=== PATIENT | female | born 1955 | race Caucasian/White ===

== ENCOUNTER 2019-06-07 18:51 | Inpatient (IN) | payer OTHER ==
[~2019-06-07] VITALS: Ht 175.3 cm; Wt 140.0 kg
[~2019-06-07 18:51] MED LIST: ALBU90OI INH; ALLO100 PO; AMLO5 PO; AMOCLA875 PO; ASPI325 PO; ASPI81CH PO; CARV25 PO; COLCHICINE0.6 MG PO; COLCRYS0.6 MG PO; DOXY100 PO; HYDACE5 PO; LISI20 PO; Lipitor20 MG PO; MAGCHL64ER PO; METO50 PO; Magnesium500 MG PO; NAPR500 PO; ONDA4ODT MM; OXYACE5T PO; POTA10T PO; Percocet 5-3251 EACH PO; Prednisone20 MG PO; UBID100 PO; WARF2; XARELTO10 MG PO; XARELTO20 MG PO; Zofran Odt4 MG PO
[2019-06-07 19:24] LABS: BASOPHILS ABSOLUTE AUTO 0.03 K/mm3 (0.00-0.23); BASOPHILS PERCENT AUTO 0 % (0-2); EOSINOPHILS ABSOLUTE AUTO 0.04 K/mm3 (0.00-0.68); EOSINOPHILS PERCENT AUTO 0 % (0-6); Hematocrit 31.4 % (33.0-51.0); Hemoglobin 10.6 g/dL (11.5-16.0); IMMATURE GRAN ABSOLUTE AUTO 0.79 K/mm3 (0.00-0.10); IMMATURE GRAN PERCENT AUTO 4 % (0-1); LYMPHOCYTES ABSOLUTE AUTO 0.99 K/mm3 (0.84-5.20); LYMPHOCYTES PERCENT AUTO 5 % (21-46); MONOCYTES ABSOLUTE AUTO 1.94 K/mm3 (0.16-1.47); MONOCYTES PERCENT AUTO 10 % (4-13); Mean Corpuscular HGB 31.8 pg (26.0-34.0); Mean Corpuscular HGB Conc 33.8 g/dL (31.5-36.5); Mean Corpuscular Volume 94 fL (80-100); Mean Platelet Volume 9.8 fL (9.1-12.4); NEUTROPHILS ABSOLUTE AUTO 16.58 K/mm3 (1.96-9.15); NEUTROPHILS PERCENT AUTO 81 % (41-73); Platelet Count 158 K/mm3 (150-400); RDW Coefficient Variation 13.1 % (11.7-14.2); RDW Standard Deviation 45.1 fL (35.1-46.3); Red Blood Cell Count 3.33 M/mm3 (3.80-5.20); White Blood Cell Count 20.37 K/mm3 (4.00-11.30)
[2019-06-07 19:54] LABS: Alanine Aminotransfer (ALT/SGP 22 U/L (12-78); Albumin, Blood 2.6 g/dL (3.4-5.0); Albumin/Globulin Ratio 0.6 (0.8-1.8); Alk Phos 89 U/L (50-136); Anion Gap 12 mmol/L (6-16); Aspartate Aminotrans (AST/SGOT 21 U/L (12-37); Bilirubin, Total 0.6 mg/dL (0.1-1.0); Blood Urea Nitrogen 38 mg/dL (8-24); Bun/Creatinine Ratio 35.2 (12.0-20.0); CO2, Blood 21 mmol/L (21-32); Calcium, Blood 8.3 mg/dL (8.5-10.1); Chloride, Blood 98 mmol/L (98-108); Creatinine, Blood 1.08 mg/dL (0.40-1.00); Globulin, Blood 4.4 g/dL (2.2-4.0); Glomerular Filtration Rate 54 (60-); Glucose, Blood 252 mg/dL (70-99); Potassium, Blood 3.2 mmol/L (3.5-5.5); Sodium, Blood 131 mmol/L (136-145); Troponin I <0.015 ng/mL (0.000-0.040)
[2019-06-08 03:38] LABS: Hematocrit 28.4 % (33.0-51.0); Hemoglobin 9.5 g/dL (11.5-16.0); Mean Corpuscular HGB 30.7 pg (26.0-34.0); Mean Corpuscular HGB Conc 33.5 g/dL (31.5-36.5); Mean Corpuscular Volume 92 fL (80-100); Mean Platelet Volume 10.3 fL (9.1-12.4); Platelet Count 137 K/mm3 (150-400); RDW Coefficient Variation 13.1 % (11.7-14.2); RDW Standard Deviation 43.8 fL (35.1-46.3); Red Blood Cell Count 3.09 M/mm3 (3.80-5.20); White Blood Cell Count 15.55 K/mm3 (4.00-11.30)
[2019-06-08 03:58] LABS: Albumin, Blood 2.3 g/dL (3.4-5.0); Albumin/Globulin Ratio 0.6 (0.8-1.8); Bilirubin, Total 0.5 mg/dL (0.1-1.0); Bun/Creatinine Ratio 28.5 (12.0-20.0); Creatinine, Blood 1.23 mg/dL (0.40-1.00); Globulin, Blood 4.1 g/dL (2.2-4.0); Potassium, Blood 3.1 mmol/L (3.5-5.5); Total Protein, Blood 6.4 g/dL (6.4-8.2)
--- NOTE | 2019-06-08 05:41 | NUR ---
ASSUMED CARE APPROXIMATELY 0130; PT ALERT AND C/O SEVERE PAIN IN LOWER EXTREMITIES; PT STAND AND TURN TO TRANSFER TO BED; PT STARTLES AND FLINCHES EASILY; JERKY ARM MOVEMENTS; PT STATES SHE DRINKS SHOTS OF VODKA NIGHTLY; DENIES SMOKING AND RECREATIONAL DRUGS; PT L LEG SWOLLEN AND WARM, W/ WHITE POSTULES; SCABS SCATTERED THROUGHOUT UPPER AND LOWER EXTREMITIES W/ VARIOUS DEGREES OF HEALING; PT DENIES OXYGEN USE AT HOME; PT CURRENTLY ON 2 L NC FOR SOB; USES FWW BASELINE; PT STATES SHE HAS NIGHT TERRORS; PT APPEARED TO FALL ASLEEP WHILE ASKING ADMIT QUESTIONS THEN STARTLES AWAKE RANDOMLY; PT MEDICATED PER EMAR FOR PAIN, REPOSITIONED W/ PILLOW UNDER L LEG, AND TALKED TO FOR DISTRACTION; TYLENOL GIVEN FOR PAIN, PT STATES WAS NOT EFFECTIVE; PT GIVEN FENTANYL FOR PAIN AND ATIVAN FOR WITHDRAWL SYMPTOMS PER EMAR; PT INCONTINENT OF BOWEL; CALL LIGHT IN REACH; BED IN LOWEST POSITION; WILL CONTINUE TO MONITOR AND ASSESS UNTIL HAND OFF TO DAY SHIFT RN.
[2019-06-08 06:46] LABS: Ethanol (Alcohol), Blood, Med 130 mg/dL
--- NOTE | 2019-06-08 09:30 | NUR ---
CALL TO [facility] TO REQUEST FAX OF CURRENT MEDICATION LIST WITH DOSES AND DIRECTIONS.
--- NOTE | 2019-06-08 09:36 | NUR ---
PCU DAYSHIFT ASSUMED CARE OF PT APPROX. 0700. PT SLEEPING AT THIS TIME. UPON ENTERING ROOM PT SLEEPING HEAVILY BUT WAS ABLE TO ARROUSE PT. ONCE ARROUSED PT WAS ABLE TO AWAKE AND ANSWER QUESTIONS APPROPRIATELY. PT ABLE TO STAY AWAKE AND MAINTAIN A CONVERSATION. PT ABLE TO DISCUSS AND ANSWER MANY QUESTIONS. PT VITAL SIGNS STABLE. ASSESSMENT COMPLETED. LEFT LOW LEG RED AND WARM TO TOUCH. NOTED SOME AREAS OF THE SKIN TO BE BLISTERED UP. PT REPORTS THIS TO BE HOW IT HAS BEEN LAST COUPLE OF DAYS. SHE REPORTS SOME PAIN IN THIS LEG AT THIS TIME BUT TOLERABLE. PT LUNG SOUNDS WHEEZEY T/O. BLE EDEMA NOTED. RIGHT LEG +2 AND LEFT LEG +3. ABDOMEN DISTENTED BUT PT REPORTS THIS TO BE NORMAL. CIWA COMPLETED. NOTED PT TO HAVE SWEATY PALMS, AND ON ARMS, NOTED PT TO HAVE TREMORS WHEN FELT HANDS. PT FAIRLY RELAXED THIS MORNING. SHE STATES MORNING TIME IS BETTER FOR HER THAN OTHERS. BED IN LOW POSITION, CALL LIGHT IN REACH AND PT DENIES ANY NEEDS. WILL CONTINUE TO MONITOR.
[2019-06-08] MEDS ORDERED: ALLO300 PO (10:37)
[2019-06-08] MEDS ORDERED: AMLO5 PO (10:38)
[2019-06-08] MEDS ORDERED: CARV25 PO (10:40)
[2019-06-08] MEDS ORDERED: CELE100 PO (10:51)
[2019-06-08] MEDS ORDERED: FURO40 PO (10:53)
[2019-06-08] MEDS ORDERED: METPRE4DP PO (10:54)
[2019-06-08] MEDS ORDERED: MELO7.5 PO (10:55)
[2019-06-08] MEDS ORDERED: PRAZ5 PO (10:58)
[2019-06-08 14:49] LABS: BASOPHILS ABSOLUTE AUTO 0.02 K/mm3 (0.00-0.23); BASOPHILS PERCENT AUTO 0 % (0-2); EOSINOPHILS ABSOLUTE AUTO 0.17 K/mm3 (0.00-0.68); EOSINOPHILS PERCENT AUTO 1 % (0-6); Hematocrit 30.8 % (33.0-51.0); Hemoglobin 10.3 g/dL (11.5-16.0); IMMATURE GRAN PERCENT AUTO 1 % (0-1); LYMPHOCYTES ABSOLUTE AUTO 0.75 K/mm3 (0.84-5.20); LYMPHOCYTES PERCENT AUTO 5 % (21-46); MONOCYTES ABSOLUTE AUTO 0.91 K/mm3 (0.16-1.47); MONOCYTES PERCENT AUTO 6 % (4-13); Mean Corpuscular HGB Conc 33.4 g/dL (31.5-36.5); NEUTROPHILS ABSOLUTE AUTO 12.48 K/mm3 (1.96-9.15); NEUTROPHILS PERCENT AUTO 86 % (41-73); Platelet Count 150 K/mm3 (150-400); RDW Coefficient Variation 13.1 % (11.7-14.2); RDW Standard Deviation 45.6 fL (35.1-46.3); Red Blood Cell Count 3.22 M/mm3 (3.80-5.20); White Blood Cell Count 14.53 K/mm3 (4.00-11.30)
[2019-06-08 14:58] LABS: Mean Corpuscular Volume 96 fL (80-100)
[2019-06-08 15:04] LABS: Anion Gap 6 mmol/L (6-16); Blood Urea Nitrogen 28 mg/dL (8-24); Bun/Creatinine Ratio 28.3 (12.0-20.0); CO2, Blood 29 mmol/L (21-32); Calcium, Blood 8.2 mg/dL (8.5-10.1); Chloride, Blood 100 mmol/L (98-108); Creatinine, Blood 0.99 mg/dL (0.40-1.00); Glomerular Filtration Rate >60 (60-); Glucose, Blood 184 mg/dL (70-99); Potassium, Blood 3.6 mmol/L (3.5-5.5); Sodium, Blood 135 mmol/L (136-145)
--- NOTE | 2019-06-08 17:46 | NUR ---
SHIFT SUMMARY PT COOPERATIVE. ALTHOUGH AT ONE POINT DURING THE DAY PT HOLLARED OUT AND STATED HER LEG WAS HURTING REALLY BADLY AND SHE JUST COULDNT HELP IT. EDUCATED PT ON IMPROTANCE OF NOT HOLLERING OUT AND USING CALL LIGHT APPROPRIATELY. PT SLEEPY TODAY, BUT REMAIN ARROUSABLE. CIWA RANGED FROM 3-5 TODAY. PT SWEATY BUT NOTED SHE HAD A FEVER AT THIS TIME. PT ABLE TO CONTINUE TO ANSWER QUESTIONS APPROPRIATELY. AND ALL OTHER ASSESSMENT FINDINGS REMAIN UNCHANGED. BED IN LOW POSITION, CALL LIGHT IN REACH AND PT DENIES ANY NEEDS AT THIS TIME. WILL CONTINUE TO MONITOR UNTIL HANDOFF TO NIGHTSHIFT RN.
[2019-06-08 19:34] LABS: Vancomycin, Trough 17.7 ug/mL (5.0-10.0)
--- NOTE | 2019-06-09 01:30 | NUR ---
ASSUMED CARE APPROXIMATELY 1900; PT SLEEPING ON AND OFF; STATES SHE IS VERY SLEEPY; L LEG RED AND WARM W/ BLISTERED PUSTULES; LEG ELEVATED ON PILLOW; PT HAD WORSENING DREAMS IN NIGHT; PT CALLED OUT AND TALKED TO HERSELF; NUMEROUS TIMES OF STARTLING AWAKE; PT HAD GOOD CONVERSATION W/ THIS NURSE INTERMITTENLY IN THE NIGHT, HOWEVER HAS GARBLED SENTENCES UNTIL FULLY AWAKE; AT TIMES STARTLES WHEN THIS NURSE ENTERS THE ROOM; C/O BATHROOM LIGHT AND REQUESTS LIGHTS TO BE OFF IN ROOM; STATES SHE LIVES W/ HER DAUGHTER THAT HELPS HER W/ HER MEDICATIONS; PT ENCOURAGED TO CALL STAFF FOR BRIEF CHANGE AND EDUCATED ON PREVENTING SKIN BREAKDOWN; CALL LIGHT IN REACH; BED IN LOWEST POSITION; WILL CONTINUE TO MONITOR AND ASSESS UNTIL HAND OFF TO DAY SHIFT.
[2019-06-09 03:28] LABS: Hemoglobin 10.1 g/dL (11.5-16.0); Mean Corpuscular HGB 31.3 pg (26.0-34.0); Mean Corpuscular HGB Conc 32.6 g/dL (31.5-36.5); Mean Corpuscular Volume 96 fL (80-100); Platelet Count 161 K/mm3 (150-400); RDW Coefficient Variation 13.2 % (11.7-14.2); Red Blood Cell Count 3.23 M/mm3 (3.80-5.20); White Blood Cell Count 14.99 K/mm3 (4.00-11.30)
[2019-06-09 03:48] LABS: Alanine Aminotransfer (ALT/SGP 15 U/L (12-78); Albumin, Blood 2.2 g/dL (3.4-5.0); Albumin/Globulin Ratio 0.5 (0.8-1.8); Alk Phos 84 U/L (50-136); Anion Gap 7 mmol/L (6-16); Aspartate Aminotrans (AST/SGOT 15 U/L (12-37); Bilirubin, Total 0.5 mg/dL (0.1-1.0); Blood Urea Nitrogen 19 mg/dL (8-24); Bun/Creatinine Ratio 22.1 (12.0-20.0); CO2, Blood 26 mmol/L (21-32); Calcium, Blood 8.3 mg/dL (8.5-10.1); Chloride, Blood 103 mmol/L (98-108); Creatinine, Blood 0.86 mg/dL (0.40-1.00); Globulin, Blood 4.3 g/dL (2.2-4.0); Glomerular Filtration Rate >60 (60-); Glucose, Blood 146 mg/dL (70-99); Magnesium, Blood 1.2 mg/dL (1.6-2.4); Phosphorus, Blood 2.2 mg/dL (2.5-4.9); Potassium, Blood 3.6 mmol/L (3.5-5.5); Sodium, Blood 136 mmol/L (136-145); Total Protein, Blood 6.5 g/dL (6.4-8.2)
--- NOTE | 2019-06-09 15:56 | NUR ---
TRANSFER NOTE PT ALERT AND ORIENTED. VS STABLE. PT COMPLAINS OF PAIN TO LEFT LOWER LEG. PT MEDICATED PER EMAR AND LEGS ELEVATED ON PILLOWS. PT SHOWS NO SIGNS OF ETOH WITHDRAWAL THIS SHIFT. PT ABLE TO TRANSFER TO BSC NEEDED WITH SBA. PT HAS BEEN OCCASIONALLY INCONTINENT THIS SHIFT. REPORT HAS BEEN CALLED TO MEDICAL FLOOR RN. PT TAKEN UP BY BED.
--- NOTE | 2019-06-09 16:05 | NUR ---
PT ARRIVED TO FLOOR VIA STRETCHER FROM PCU. ATTENDS CHANGE 2 STAFF NEEDED. AWAKE ALERT. BED LOW AND IN LOCKED POSITION. BLE ELEVATED ON PILLOWS. FREQUENT ROUNDING EXPLAINED TO PT. CALL LIGHT WITHIN REACH. FLUIDS PROVIDED.
--- NOTE | 2019-06-09 17:49 | NUR ---
SHIFT SUMMARY ARRIVED TO FLOOR FROM PCU THIS AFTERNOON. AWAKE ALERT PAIN WITH MOVEMENT TO BLE CELLULITIS (FROM "FLEAS"). INCONTINENT ATTENDS IN PLACE. ABLE TO STAND. CIWA. DRINKS 2-3 SHOTS OF VODKA DAILY. CBG'S AC,HS. AFIB IN 90'S. TROPONIN NEGATIVE. BNP 540. OX3. INTERMITTENTLY USES 02 AT HOME.
--- NOTE | 2019-06-10 06:23 | NUR ---
SHIFT SUMMARY PT A/O PAIN IN L LEG AND MEDICATED PER EMAR X2. INCONTINENT OF URINE BUT ALSO 1-2 PERSON ASSIST TO BSC. LARGE BM. SHE WAS ABLE TO SLEEP T/O NIGHT. [facility]
[2019-06-10 09:33] LABS: BASOPHILS ABSOLUTE AUTO 0.02 K/mm3 (0.00-0.23); BASOPHILS PERCENT AUTO 0 % (0-2); EOSINOPHILS ABSOLUTE AUTO 0.18 K/mm3 (0.00-0.68); EOSINOPHILS PERCENT AUTO 2 % (0-6); Hematocrit 28.6 % (33.0-51.0); Hemoglobin 9.2 g/dL (11.5-16.0); IMMATURE GRAN ABSOLUTE AUTO 0.17 K/mm3 (0.00-0.10); IMMATURE GRAN PERCENT AUTO 2 % (0-1); LYMPHOCYTES ABSOLUTE AUTO 0.84 K/mm3 (0.84-5.20); LYMPHOCYTES PERCENT AUTO 9 % (21-46); MONOCYTES ABSOLUTE AUTO 0.61 K/mm3 (0.16-1.47); MONOCYTES PERCENT AUTO 7 % (4-13); Mean Corpuscular HGB 31.3 pg (26.0-34.0); Mean Corpuscular HGB Conc 32.2 g/dL (31.5-36.5); Mean Corpuscular Volume 97 fL (80-100); Mean Platelet Volume 9.6 fL (9.1-12.4); NEUTROPHILS ABSOLUTE AUTO 7.48 K/mm3 (1.96-9.15); NEUTROPHILS PERCENT AUTO 81 % (41-73); Platelet Count 148 K/mm3 (150-400); RDW Coefficient Variation 13.2 % (11.7-14.2); RDW Standard Deviation 46.9 fL (35.1-46.3); Red Blood Cell Count 2.94 M/mm3 (3.80-5.20)
[2019-06-10 09:52] LABS: Anion Gap 6 mmol/L (6-16); Blood Urea Nitrogen 9 mg/dL (8-24); Bun/Creatinine Ratio 12.1 (12.0-20.0); CO2, Blood 30 mmol/L (21-32); Calcium, Blood 8.3 mg/dL (8.5-10.1); Chloride, Blood 98 mmol/L (98-108); Creatinine, Blood 0.75 mg/dL (0.40-1.00); Glomerular Filtration Rate >60 (60-); Glucose, Blood 213 mg/dL (70-99); Potassium, Blood 3.8 mmol/L (3.5-5.5); Sodium, Blood 134 mmol/L (136-145)
[2019-06-10 10:08] LABS: Magnesium, Blood 1.1 mg/dL (1.6-2.4)
[2019-06-10 11:26] LABS: Vancomycin, Trough 13.9 ug/mL (5.0-10.0)
--- NOTE | 2019-06-10 18:11 | NUR ---
PATIENT A/OX4 THIS SHIFT, UP WITH 1 ASSIST AND FWW TO RESTROOM. VSS, ON RA THROUGHOUT THE DAY. 22G IV TO L HAND AND 20G TO R HAND WNL AND SL BETWEEN MEDICATIONS. MAG WAS 1.1 TODAY AND IT WAS REPLACED. LLE REMAINS RED AND SWOLLEN WITH BLISTERING. MULTIPLE SCABS TO BUE/BLE. VANCO AND ANCEF TO TREAT CELLULITIS. FENTANYL D/C'D TODAY AND PATIENT PUT ON PERCOCET WITH GOOD PAIN CONTROL. ACHS BLOOD SUGARS, COVERAGE REQUIRED AT LUNCH ONLY TODAY. PATIENT IS CALM AND COOPERATIVE WITH CARE AND CALLS APPROPRIATELY FOR ASSISTANCE.
--- NOTE | 2019-06-11 04:41 | NUR ---
SHIFT SUMMARY- NO ACUTE EVENTS OVERNIGHT. PT. RESTED COMFORTABLY T/O THE SHIFT. GAVE PERCOCET 2X FOR LT LEG PAIN AND ICE PACK PLACED ON THE LEG. PT. HAD GOOD RELIEF. PT. DENIED ANY OTHER NEEDS T/O THE NIGHT. CALL LIGHT WITHIN REACH AND SIDE RAILS UP X2. WILL CONT TO MONITOR.
[2019-06-11] MEDS ORDERED: CO Q-10100 MG PO (07:58)
[2019-06-11] MEDS ORDERED: FISH OIL 1,2001 EACH PO (07:59)
[2019-06-11] MEDS ORDERED: Citalopram HBr40 MG PO (08:01)
[2019-06-11] MEDS ORDERED: Mirapex0.25 MG PO (08:03)
--- NOTE | 2019-06-11 18:44 | NUR ---
PATIENT A/OX4, UP TO RESTROOM WITH FWW AND 1 ASSIST. INCONTINENT FOR MOST OF THIS SHIFT. LLE RED, SWOLLEN AND HOT, MULTIPLE SCABS IN VARIOUS STAGES OF HEALING COVERING BODY. PATIENT TAKING PERCOCET TO TREAT THE PAIN AND KEEPING LEGS ELEVATED. RECEIVING IV ANCEF AND VANCO TO TREAT CELLULITIS. TOLERATING DIET, ACHS BLOOD SUGARS. FALL PRECAUTIONS IN PLACE. CALM AND COOPERATIVE WITH CARE, CALLS APPROPRIATELY FOR ASSITANCE.
--- NOTE | 2019-06-12 01:41 | NUR ---
PT. TRANSFERRED TO ROOM 312 VIA BED BY NURSING STAFF. REPORT CALLED TO SHE RASHID.
--- NOTE | 2019-06-12 01:50 | NUR ---
REPORT RECIEVED FROM SARAH BERUMEN AND PT T/F FROM ROOM 351 TO ROOM 312 AT 0138. THIS RN AGREES TO SARAH'S SHIFT ASSESSMENT FINDINGS. PT REPORTS CONTINUED PAIN TO LLE BUT ADMITS IT'S TOLERABLE AND NOT TIME FOR PRN PAIN MEDS YET. SHE DENIES NEEDING ANYTHING ADDITIONALLY. IV ABX INFUSING. BLE'S ELEVATED ON PILLOWS. PT ORIENTED TO NEW ROOM W/CALL LIGHT AND BELONGINGS IN REACH. WCTM.
--- NOTE | 2019-06-12 04:26 | NUR ---
SUMMARY: PT T/F FROM SCU ROOM 351 AT 0138. SHE'S A/O, CALLS APPROPRIATELY AND SPECIFIES NEEDS. BLE CELLULITIS PERSISTS HOWEVER LLE IS FAR WORSE. L.LEG REMAINS RED, HOT SWOLLEN AND WEAPING BUT HAS RECEEDED FROM MARKED REGION. IV ANCEF AND VANCO BEING RECIEVED. PT ALSO HAS MULTIPLE HEALING SCABS COVERING ENTIRE BODY FROM FLEA BITES. PRN PERCOCET RECIEVED PER EMAR FOR TOLERABLE CONTROL OF LLE PAIN. PER REPORT PT WAS INCONTINENT MOST OF THE SHIFT W/ATTENDS CHANGED PRN. SHE'S UP W/1 ASSIST AND FWW BUT HASN'T BEEN OOB SINCE ARRIVAL TO ROOM 351. NO ACUTE CHANGES, VSS/AFEBRILE. WCTM AND REPORT TO DAY RN.
[2019-06-12 04:46] LABS: BASOPHILS ABSOLUTE AUTO 0.02 K/mm3 (0.00-0.23); BASOPHILS PERCENT AUTO 0 % (0-2); EOSINOPHILS ABSOLUTE AUTO 0.18 K/mm3 (0.00-0.68); EOSINOPHILS PERCENT AUTO 2 % (0-6); Hematocrit 29.8 % (33.0-51.0); Hemoglobin 9.5 g/dL (11.5-16.0); IMMATURE GRAN ABSOLUTE AUTO 0.14 K/mm3 (0.00-0.10); IMMATURE GRAN PERCENT AUTO 2 % (0-1); LYMPHOCYTES ABSOLUTE AUTO 0.89 K/mm3 (0.84-5.20); LYMPHOCYTES PERCENT AUTO 10 % (21-46); MONOCYTES ABSOLUTE AUTO 0.88 K/mm3 (0.16-1.47); MONOCYTES PERCENT AUTO 10 % (4-13); Mean Corpuscular HGB 30.4 pg (26.0-34.0); Mean Corpuscular HGB Conc 31.9 g/dL (31.5-36.5); Mean Corpuscular Volume 96 fL (80-100); Mean Platelet Volume 9.4 fL (9.1-12.4); NEUTROPHILS ABSOLUTE AUTO 6.79 K/mm3 (1.96-9.15); NEUTROPHILS PERCENT AUTO 76 % (41-73); Platelet Count 153 K/mm3 (150-400); RDW Coefficient Variation 13.2 % (11.7-14.2); RDW Standard Deviation 45.5 fL (35.1-46.3); Red Blood Cell Count 3.12 M/mm3 (3.80-5.20)
[2019-06-12 05:03] LABS: Anion Gap 5 mmol/L (6-16); Blood Urea Nitrogen 9 mg/dL (8-24); Bun/Creatinine Ratio 11.9 (12.0-20.0); CO2, Blood 29 mmol/L (21-32); Calcium, Blood 8.4 mg/dL (8.5-10.1); Chloride, Blood 97 mmol/L (98-108); Creatinine, Blood 0.76 mg/dL (0.40-1.00); Glomerular Filtration Rate >60 (60-); Glucose, Blood 144 mg/dL (70-99); Magnesium, Blood 1.4 mg/dL (1.6-2.4); Potassium, Blood 4.3 mmol/L (3.5-5.5); Sodium, Blood 131 mmol/L (136-145)
[2019-06-12 11:49] LABS: Vancomycin, Trough 23.3 ug/mL (5.0-10.0)
--- NOTE | 2019-06-12 17:19 | NUR ---
PT A/O. PT SLEEPING INTERMITENTLY THORUGHOUT THIS SHIFT. PT RECIEVING IV ANTIBIOTICS. RASH ON BLE. PT EATING AND DRINKING WELL. DECLINED PT AND OT, DID STAND UP AND TOOK A SHOWER, AND SAT IN RECLINER FOR A PERIOD OF TIME. BLE STILL RED AND SWOLLED BUT DECREASED FROM ORIGINAL RAGHU.
--- NOTE | 2019-06-12 23:24 | NUR ---
2000 RESTING COMFORTABLY IN BED WITH LLE ELEVATED TWO PILLOWS, LLE REDDENED WITH NUMEROUS SCABS NOTED, RLE HAS NUMEROUS SCABS NOTED, DENIES PAIN.
--- NOTE | 2019-06-13 04:28 | NUR ---
SHIFT SUMMARY: 63 Y/O FEMALE HAD RESTLESS ALL SHIFT AT TIMES THIS SHIFT, ALERT AND ORIENTED X 2, PT CLIMBED OOB TO BEDSIDE CHAIR X 1 WITHOUT CALLING FOR ASSISTANCE AND WAS SLIGHTLY CONFUSED, ASSISTED BACK TO BED X 1 ASSIST, BILATERAL LOWER LEGS ARE REDDENED WITH NUMEROUS SCABS NOTED, LEGS ELEVATED ON 2 PILLOWS, C/O BLE PAIN RATED 6/10 WITH PERCOCET 5/325MG X 1 GIVEN WITH RELIEF FELT, CIWA SCORE IS ZERO, BED ALARM APPLIED WITH BED LOW POSITON AND CALL LIGHT AT SIDE.
--- NOTE | 2019-06-13 09:37 | NUR ---
PATIENT REFUSED THREE TIMES FOR HER ATTENDS TO BE CHANGED, PATIENT SAID SHE IS FINE DOESNT NEED TO BE CHANGED IN REPORT I GO THEY VERBALIZED HER IS CONFUSED AND INCONTINENT, NURSE NOTIFIED.
--- NOTE | 2019-06-13 18:07 | NUR ---
PATIENT IS ALERT AND ABLE TO EXPRESS ANY NEEDS. SHE HAS SLEPT THROUGHOUT THE DYA. PATIENTS LEGS CONTINUE TO HURT HER , MEDICATED PER EMAR. NO ACUTE CHANGES.
--- NOTE | 2019-06-14 04:28 | NUR ---
SHIFT SUMMARY: 63 Y/O OBESE FEMALE RESTED COMFORTABLY ALL SHIFT, BILATERAL LOWER LEGS ARE REDDENED AND WARM TO TOUCH WITH NUMEROUS SCABS NOTED, C/O LOWER LEG PAIN 6/10 WITH PERCOCET 5/325MG PO X 2 TABS GIVEN WITH RELIEF FELT, ALERT AND ORIENTED X 4, SLIGHT ANXIETY AT TIMES WHICH RESOLVED WITH REST AND LIGHTS DIMMINED IN ROOM, BED ALARM APPLIED, BED LOW POSITION, CALL LIGHT AT SIDE.
[2019-06-14 05:08] LABS: Anion Gap 3 mmol/L (6-16); Blood Urea Nitrogen 15 mg/dL (8-24); Bun/Creatinine Ratio 17.2 (12.0-20.0); CO2, Blood 31 mmol/L (21-32); Calcium, Blood 8.7 mg/dL (8.5-10.1); Chloride, Blood 98 mmol/L (98-108); Creatinine, Blood 0.87 mg/dL (0.40-1.00); Glomerular Filtration Rate >60 (60-); Glucose, Blood 97 mg/dL (70-99); Magnesium, Blood 1.4 mg/dL (1.6-2.4); Sodium, Blood 132 mmol/L (136-145)
--- NOTE | 2019-06-14 17:44 | NUR ---
NO ACUTE CHANGES. PATIENTS LEGS CONTINUE TO DRAIN. PAIN MEDS GIVEN PER EMAR. PATIENT ABLE TO TRANSFER TO [facility] WITH HER WALKER. SHE IS ALERT AND ORIENTED AND ABLE TO EXPRESS HER NEEDS.
--- NOTE | 2019-06-15 04:32 | NUR ---
SHIFT SUMMARY: 63 Y/O OBESE FEMALE RESTED COMFORTABLY ALL SHIFT WITH BILATERAL LOWER LEGS ELEVATED TWO PILLOWS, LEFT CALF HAS SCANT SEROSANGUINOUS DRAINAGE ANTERIOR ASPECT WITH REDNESS AND WARMTH NOTED, AFEBRILE, C/O LEG PAIN RATED 6/10 WITH PERCOCET 5/325MG X 2 TABS GIVEN X 1 WITH RELIEF FELT, PTS DAUGHTER CAME AND VISITED LAST NIGHT WITH PATIENT INTENDING TO LIVE WITH HER AT DISCHARGE. THIS NURSE REVIEWED WITH DAUGHTER AND PATIENT NEED FOR ETOH CESSATION, DM AND RISK FOR POSSIBLE FURTHER LEG INFECTIONS WITH ACKNOWLEDGEMENT NOTED. ABLE TRANSFER PER SELF TO BSC AND VOID, BED LOW POSITION, CALL LIGHT AT SIDE.
[2019-06-15 05:21] LABS: Anion Gap 6 mmol/L (6-16); Blood Urea Nitrogen 19 mg/dL (8-24); Bun/Creatinine Ratio 24.5 (12.0-20.0); CO2, Blood 28 mmol/L (21-32); Calcium, Blood 8.6 mg/dL (8.5-10.1); Chloride, Blood 99 mmol/L (98-108); Creatinine, Blood 0.78 mg/dL (0.40-1.00); Glomerular Filtration Rate >60 (60-); Glucose, Blood 109 mg/dL (70-99); Magnesium, Blood 1.6 mg/dL (1.6-2.4); Potassium, Blood 4.2 mmol/L (3.5-5.5); Sodium, Blood 133 mmol/L (136-145)
[2019-06-15 09:58] LABS: Percent Saturation 20.7 % (15.0-50.0)
--- NOTE | 2019-06-15 17:16 | NUR ---
SUMMARY PT IS A/O X4, PLEASANT/TALKATIVE AFFECT. SHE STATE CONTINUING PAIN THAT INCREASES W TOUCH OR WT BRG LLE. PRN PERCOCET 2 TABS PRN FOR RELIEF. RED RASH CONTINUES BLE, PT STATE ITCHING, SCHEDULED BENADRYL FOR RELIEF. DR PORTER IN TO ASSESS LLE CELLULITIS THIS AM, SITE CONTINUES RED, SWOLLEN, WARM W LRG WEEPING BLISTER/ABCESS. DR ORDER ULTRASOUND OF LEG & WOUND CX. DR PHILLIPS (SURG) IN THIS AFTERNOON TO I&D SITE, ABCESS CX SENT. IV ANTIBX CONTINUE. VSS/AFEBRILE.
[2019-06-16 04:34] LABS: BASOPHILS ABSOLUTE AUTO 0.05 K/mm3 (0.00-0.23); BASOPHILS PERCENT AUTO 1 % (0-2); EOSINOPHILS PERCENT AUTO 2 % (0-6); Hematocrit 27.7 % (33.0-51.0); Hemoglobin 8.9 g/dL (11.5-16.0); IMMATURE GRAN ABSOLUTE AUTO 0.06 K/mm3 (0.00-0.10); IMMATURE GRAN PERCENT AUTO 1 % (0-1); LYMPHOCYTES ABSOLUTE AUTO 1.23 K/mm3 (0.84-5.20); LYMPHOCYTES PERCENT AUTO 20 % (21-46); MONOCYTES ABSOLUTE AUTO 0.61 K/mm3 (0.16-1.47); MONOCYTES PERCENT AUTO 10 % (4-13); Mean Corpuscular HGB 31.1 pg (26.0-34.0); Mean Corpuscular HGB Conc 32.1 g/dL (31.5-36.5); Mean Corpuscular Volume 97 fL (80-100); NEUTROPHILS ABSOLUTE AUTO 4.25 K/mm3 (1.96-9.15); NEUTROPHILS PERCENT AUTO 67 % (41-73); Platelet Count 283 K/mm3 (150-400); RDW Coefficient Variation 13.2 % (11.7-14.2); RDW Standard Deviation 47.3 fL (35.1-46.3); Red Blood Cell Count 2.86 M/mm3 (3.80-5.20)
[2019-06-16 05:06] LABS: Anion Gap 6 mmol/L (6-16); Blood Urea Nitrogen 18 mg/dL (8-24); Bun/Creatinine Ratio 20.9 (12.0-20.0); CO2, Blood 28 mmol/L (21-32); Calcium, Blood 8.5 mg/dL (8.5-10.1); Chloride, Blood 98 mmol/L (98-108); Creatinine, Blood 0.86 mg/dL (0.40-1.00); Glomerular Filtration Rate >60 (60-); Glucose, Blood 101 mg/dL (70-99); Sodium, Blood 132 mmol/L (136-145)
--- NOTE | 2019-06-16 06:11 | NUR ---
SHIFT SUMMARY PT IS A 63 Y/O FEMALE, ADMITTED FOR RLE CELLULITIS. PER REPORT PT HAD A BEDSIDE ABSCESS DRAIN YESTERDAY. SHE WAS MEDICATED FOR PAIN TWICE DURING THE NIGHT WITH PRN NORCO, THOUGH PAIN WAS WORSE THIS AM COMPARED TO PREVIOUS NIGHT. NO COMPLAINTS OF NAUSEA OR SOB. VITAL SIGNS WERE STABLE. PT IS ABLE TO STAND AND PIVOT TO BS INDEPENDENTLY. NO OTHER ACUTE CHANGES IN PT CONDITION NOTED DURING THE NIGHT. WILL CONTINUE TO MONITOR AND TREAT PER EMAR UNTIL HAND OFF TO DAY SHIFT RN.
--- NOTE | 2019-06-16 16:54 | NUR ---
SUMMARY DR PORTER IN TO SEE PT THIS AM, ASSESS LLE WOUND. WOUND CARE/DRSG CHANGE PROVIDED. LEG CONTINUES RED/SWOLLEN/EDEMATOUS HOWEVER SOMEWHAT IMPROVED. IV ANTIBX CONTINUE. SHE STATE CONTINUING PAIN LLE, PRN PERCOCET APPROX Q4 HRS FOR RELIEF. SHE IS UP IND TO BSC. VSS.
[2019-06-17 04:01] LABS: BASOPHILS ABSOLUTE AUTO 0.07 K/mm3 (0.00-0.23); BASOPHILS PERCENT AUTO 1 % (0-2); EOSINOPHILS ABSOLUTE AUTO 0.13 K/mm3 (0.00-0.68); EOSINOPHILS PERCENT AUTO 2 % (0-6); Hematocrit 30.7 % (33.0-51.0); Hemoglobin 9.8 g/dL (11.5-16.0); IMMATURE GRAN ABSOLUTE AUTO 0.05 K/mm3 (0.00-0.10); IMMATURE GRAN PERCENT AUTO 1 % (0-1); LYMPHOCYTES ABSOLUTE AUTO 1.43 K/mm3 (0.84-5.20); LYMPHOCYTES PERCENT AUTO 17 % (21-46); MONOCYTES ABSOLUTE AUTO 0.66 K/mm3 (0.16-1.47); MONOCYTES PERCENT AUTO 8 % (4-13); Mean Corpuscular HGB 30.6 pg (26.0-34.0); Mean Corpuscular HGB Conc 31.9 g/dL (31.5-36.5); Mean Corpuscular Volume 96 fL (80-100); NEUTROPHILS ABSOLUTE AUTO 6.19 K/mm3 (1.96-9.15); NEUTROPHILS PERCENT AUTO 73 % (41-73); Platelet Count 359 K/mm3 (150-400); RDW Coefficient Variation 13.3 % (11.7-14.2); RDW Standard Deviation 47.2 fL (35.1-46.3); White Blood Cell Count 8.53 K/mm3 (4.00-11.30)
[2019-06-17 04:18] LABS: Anion Gap 6 mmol/L (6-16); Blood Urea Nitrogen 16 mg/dL (8-24); Bun/Creatinine Ratio 21.6 (12.0-20.0); CO2, Blood 26 mmol/L (21-32); Calcium, Blood 9.2 mg/dL (8.5-10.1); Chloride, Blood 101 mmol/L (98-108); Creatinine, Blood 0.74 mg/dL (0.40-1.00); Glomerular Filtration Rate >60 (60-); Glucose, Blood 97 mg/dL (70-99); Potassium, Blood 4.3 mmol/L (3.5-5.5); Sodium, Blood 133 mmol/L (136-145)
--- NOTE | 2019-06-17 06:25 | NUR ---
SHIFT SUMMARY NO ACUTE EVENTS OVERNIGHT. PATIENT SLEPT THROUGHOUT THE NIGHT. UP SBA TO BSC. CALLS APPROPRIATELY. PAIN MEDICATION PRN FOR LEFT LEG CELLULITIS. PATIENT STATES THAT RASH IS GETTING BETTER FROM ABX REACTION. DRESSING ON LLE C/D/I. WILL CONTINUE TO MONITOR.
--- NOTE | 2019-06-17 16:56 | NUR ---
SHIFT SUMMARY MEDICATED FOR LEFT LEG PAIN PER EMAR. PT UP TO CHAIR FOR LUNCH AND HAS BEEN AMBULATING TO BATHROOM WITH FWW WITHOUT DIFFICULTY. PT HAS DRESSING TO LEFT LEG THAT IS CLEAN/DRY/INTACT. NO ACUTE CHANGES THIS SHIFT. PLANS FOR PT TO DISCHARGE HOME TOMORROW. CALL LIGHT IN REACH.
--- NOTE | 2019-06-18 06:22 | NUR ---
Shift Summary Patient slept intermittently between cares. PRN Percocet was effective for pain. She did have one incontinent void overnight. She is transferring and ambulating with [facility].
[2019-06-18] MEDS ORDERED: Florastor250 MG PO (10:21)
[2019-06-18] MEDS ORDERED: Clindamycin HC300 MG PO (10:22)
--- NOTE | 2019-06-18 12:01 | NUR ---
PT RESTING QUIETLY, SLEEPING DURING SHIFT REPORT. WOKE EASILY FOR CARE. NO C/O. DR PORTER IN TO SEE PT EARLY; D/C ORDERS PLACED. AM MEDS AND ABX GIVEN. LLE DRSG CHANGED, WOUND CLEANED, AND D/C PICTURE TAKEN. RASH TO BLE'S, COVERING ENTIRE LEGS. KENALOG OINTMENT APPLIED PER EMAR. PT REPORTED IT EFFECTIVE AND HELPFUL. D/C MEDICATION LIST FAXED TO [facility], PER PT REQUEST. IV TO RFA D/C'D WNL'S. PT'S DAUGHTER NOTIFIED AND CAME TO TO OBTAIN PT BELONGING'S. PT ASSISTED TO DAUGHTER'S CAR VIA W/C.
== END 2019-06-18 11:12 | disposition home or self-care (01) | DRG 854 ==
LOC: ER 18:51 → PCU 23:14 → MEDS 06-09 15:55
PROVIDERS: Internal Medicine; Physician Assistant; ADMIT Internal Medicine
PROC: 0J9P0ZZ Drainage of Left Lower Leg Subcutaneous Tissue and Fascia, Open Approach (ICD-10-PCS; principal; 2019-06-15)
DX: A41.9 Sepsis, unspecified organism (principal); L03.116 Cellulitis of left lower limb; E87.1 Hypo-osmolality and hyponatremia; I48.20 Chronic atrial fibrillation, unspecified; N17.9 Acute kidney failure, unspecified; L02.416 Cutaneous abscess of left lower limb; Z68.42 Body mass index [BMI] 45.0-49.9, adult; R65.20 Severe sepsis without septic shock; E66.01 Morbid (severe) obesity due to excess calories; E78.5 Hyperlipidemia, unspecified; N18.3 Chronic kidney disease, stage 3 (moderate); D63.1 Anemia in chronic kidney disease; E83.42 Hypomagnesemia; M10.9 Gout, unspecified; E87.6 Hypokalemia; I48.91 Unspecified atrial fibrillation; E86.0 Dehydration; I10 Essential (primary) hypertension; E83.39 Other disorders of phosphorus metabolism; F10.20 Alcohol dependence, uncomplicated; R73.9 Hyperglycemia, unspecified; T36.1X5A Adverse effect of cephalosporins and other beta-lactam antibiotics, initial encounter; Y92.230 Patient room in hospital as the place of occurrence of the external cause; Z79.01 Long term (current) use of anticoagulants; Z79.899 Other long term (current) drug therapy
CPT/HCPCS: 36415; 71046; 76882; 80048; 80053; 80202; 82728; 82947; 83036; 83540; 83550; 83605; 83735; 83880; 84100; 84484; 85025; 85027; 87040; 87070; 87075; 87205; 93005; 93010; 94760; 96365; 96367; 96368; 96375; 97110; 97162; 97166; 97530; 97535; 99285-25; A9270; G0480; J0690; J1650; J1956; J2060; J2270; J2405; J3010; J3370; J3411; J3475; J7030; J7042; J7050; J7060; J7120; Q0163

== ENCOUNTER 2025-07-01 01:07 | Emergency (ER) | payer OTHER ==
[~2025-07-01] VITALS: Ht 177.8 cm; Wt 136.1 kg
[~2025-07-01 01:07] MED LIST changes: +ALLO300 PO; +CELE100 PO; +CO Q-10100 MG PO; +Citalopram HBr40 MG PO; +Clindamycin HC300 MG PO; +FISH OIL 1,2001 EACH PO; +FURO40 PO; +Florastor250 MG PO; +MELO7.5 PO; +METPRE4DP PO; +Mirapex0.25 MG PO; +PRAZ5 PO
[2025-07-01] MEDS ORDERED: Morphine Sulfate 4 MG/1 ML Injection IM ONE (01:30)
[2025-07-01] MEDS ORDERED: Lidocaine 4% 1 Patch TOP ONE (01:30)
[2025-07-01] MEDS ORDERED: Ketorolac Tromethamine 15mg Vial IM ONE (01:30)
[2025-07-01] MEDS ORDERED: HYDROmorphone HCl/Pf 1MG SYR IM ONE (03:35)
[2025-07-01 04:24] LABS: Source, Urine Clean Catch
[2025-07-01 04:27] LABS: Bilirubin, Urine Neg (Neg); Glucose Qualitative, Urine Neg (Neg); Ketones, Urine Neg (Neg); Leukocyte Esterase, Urine 1+ (Neg); Protein, Urine Neg (Neg); Specific Gravity, Urine 1.015 (1.003-1.022); Urobilinogen, Urine NORM (Normal)
[2025-07-01 04:28] LABS: BASOPHILS ABSOLUTE AUTO 0.03 K/mm3 (0.00-0.23); BASOPHILS PERCENT AUTO 1 % (0-2); EOSINOPHILS ABSOLUTE AUTO 0.11 K/mm3 (0.00-0.68); EOSINOPHILS PERCENT AUTO 2 % (0-6); Hematocrit 38.0 % (33.0-51.0); Hemoglobin 12.8 g/dL (11.5-16.0); IMMATURE GRAN ABSOLUTE AUTO 0.02 K/mm3 (0.00-0.10); IMMATURE GRAN PERCENT AUTO 0 % (0-1); LYMPHOCYTES ABSOLUTE AUTO 2.10 K/mm3 (0.84-5.20); LYMPHOCYTES PERCENT AUTO 39 % (21-46); MONOCYTES ABSOLUTE AUTO 0.61 K/mm3 (0.16-1.47); MONOCYTES PERCENT AUTO 11 % (4-13); Mean Corpuscular HGB Conc 33.7 g/dL (31.5-36.5); Mean Corpuscular Volume 86 fL (80-100); NEUTROPHILS ABSOLUTE AUTO 2.47 K/mm3 (1.96-9.15); NEUTROPHILS PERCENT AUTO 46 % (41-73); NRBC ABSOLUTE 0.00 K/mm3 (0.00-0.02); NRBC Auto 0.0 /100 WBC (0.0-0.2); Platelet Count 191 K/mm3 (150-400); RDW Coefficient Variation 14.6 % (11.7-14.2); RDW Standard Deviation 46.2 fL (35.1-46.3)
[2025-07-01 04:36] LABS: Color, Urine Yellow (P-Yellow)
[2025-07-01 04:37] LABS: Red Blood Cells, Urine Not Seen /hpf (0-2)
[2025-07-01 04:46] LABS: Alanine Aminotransfer (ALT/SGP 29.0 U/L (12-78); Albumin, Blood 3.8 g/dL (3.4-5.0); Albumin/Globulin Ratio 1.0 (0.8-1.8); Anion Gap 6.0 mmol/L (3-11); Aspartate Aminotrans (AST/SGOT 21.0 U/L (12-37); Bilirubin, Total 0.2 mg/dL (0.1-1.0); Blood Urea Nitrogen 21.0 mg/dL (8-24); CO2, Blood 29.0 mmol/L (21-32); Calcium, Blood 9.0 mg/dL (8.5-10.1); Chloride, Blood 106.0 mmol/L (98-108); Creatinine, Blood 0.77 mg/dL (0.40-1.00); Globulin, Blood 3.8 g/dL (2.2-4.0); Glucose, Blood 149.0 mg/dL (70-99); Magnesium, Blood 1.7 mg/dL (1.6-2.4); Potassium, Blood 3.8 mmol/L (3.5-5.5); Sodium, Blood 137.0 mmol/L (136-145); Total Protein, Blood 7.6 g/dL (6.4-8.2)
[2025-07-01 07:50] VITALS: BP 116/85
== END 2025-07-01 13:31 | disposition home or self-care (01) ==
LOC: ER 01:07
PROVIDERS: Emergency Medicine
DX: M25.551 Pain in right hip (principal); N83.9 Noninflammatory disorder of ovary, fallopian tube and broad ligament, unspecified; R93.5 Abnormal findings on diagnostic imaging of other abdominal regions, including retroperitoneum; I48.0 Paroxysmal atrial fibrillation; I11.0 Hypertensive heart disease with heart failure; I50.9 Heart failure, unspecified; E78.5 Hyperlipidemia, unspecified; M10.9 Gout, unspecified; Z87.891 Personal history of nicotine dependence; Z79.01 Long term (current) use of anticoagulants; Z79.899 Other long term (current) drug therapy
CPT/HCPCS: 73502; 74177; 76830; 76856; 80053; 81001; 83690; 83735; 85025; 96372; 99284-25; A6590; A9270; J1171; J1885; J2270; Q9967